=== PATIENT | female | born 1955 | race American Indian/Alaskan Native ===

== ENCOUNTER 2019-12-16 07:13 | Day surgery (SDC) | payer OTHER ==
[~2019-12-16 07:13] MED LIST: SODIUM CHLORIDE 0.9% 1000 ML 1,000 ML IV SCH
[2019-12-16] MEDS ORDERED: WATER FOR IRRIG STERILE 250 ML BOTTLE IR ONE (07:40)
--- NOTE | 2019-12-16 08:21 | Anesthesia Day of Surgery ---
Anesthesia Day of Surgery - Day of Surgery Patient Examined: Yes Patient H&P Reviewed: Yes Patient is NPO: Yes
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
[2019-12-16] MEDS ORDERED: LIDOCAINE MPF (2%) 20 MG/1 ML VIAL 5 ML ONE (10:05)
[2019-12-16] MEDS ORDERED: propofoL 200 MG/20 ML VIAL IV ONE ×3 (10:05→10:32)
[2019-12-16] MEDS ORDERED: ONDANSETRON 4 MG/2 ML INJ ONE (10:05)
--- NOTE | 2019-12-16 10:53 | Procedure Note ---
Date of procedure: 12/16/19 Pre-op diagnosis: Colon Polyp Screening/ H/O GI Bleeding Post-op diagnosis: other (GI Bleeding possiblyfrom Proximal colon Diverticuli/ Proximal Colon Lipoma (biopsied)/Ascending colon Polyp (removed by Cold Biopsy)/ Another Ascending Colon Poyp seen, but then could not be located or removed.) Procedure: Colonoscopy with cold Biopsy Anesthesia: MAC Surgeon: HILDA TAVAREZ Estimated blood loss: minimal Pathology: list Specimen disposition: to lab Condition: stable Disposition: same day (Encourage fiber intake and avoid aspirin and NSAID for 5 days; otherwise resume home medication. Use OTC Hemorrhoidal medication if needed. Follwo up in 1 to 2 weeks ([phone]). Repeat Colonoscopy in 1 year.)
--- NOTE | 2019-12-16 11:24 | Operative Report ---
PROCEDURE: Colonoscopy. INDICATIONS: This is a 64-year-old -[place] female who had a colonoscopy done as part of colon polyp screening. She also had complained of some GI bleeding. DESCRIPTION OF PROCEDURE: The procedure was done after getting informed consent with MAC anesthesia. Initial rectal exam was unremarkable. Instrument was passed through the rectum onto the cecum, which was identified by the ileocecal valve and the appendiceal orifice. Visualization was fair to good. In the cecum, there was a lipoma noted that was biopsied. In addition, there was an 8 mm polyp that was removed by cold biopsy. There was another polyp noted or seen in the ascending colon, but could not be located as it probably hid behind a fold and could not be removed as it could not be found. There were a few scattered diverticuli noted in the proximal colon, which may have caused the patient's bleeding but there is no source of bleeding at present. The transverse colon, descending colon, and sigmoid showed normal mucosa and the rectum appeared normal on the retroverted view. There was minimal bleeding associated with the biopsies, but no complications associated with the procedure. ASSESSMENT: Colon polyp screening, history of gastrointestinal bleeding, possibly secondary to proximal colon diverticular disease, but no bleeding at present. Right colon lipoma that was biopsied, right colon polyp about 7-8 mm, removed by cold biopsy. An additional polyp in the right colon was seen, but could not be subsequently located and could not be removed. PLAN: To have the patient avoid aspirin and aspirin-related products for the next few days. Encouraged the patient to take fiber supplements. Follow up in the office in 1-2 weeks' time and possibly to repeat the colonoscopy since a polyp was seen, but not removed in a year's time. Procedure was done in the GI lab with assistance of the GI lab team, which included ANA Oliver; Amadeo platt and with assistance of anesthesia. JOB# [id number] DEBORA/DARA
[2019-12-16 11:30] VITALS: BP 128/71
--- NOTE | 2019-12-16 12:26 | Post Anesthesia Evaluation ---
- Post Anesthesia Evaluation Patient Participated: Yes Airway Patent: Yes Stable Respiratory Function: Yes Nausea/Vomiting: No Temp > 96.8F: Yes Pain Manageable: Yes Adequeate Hydration: Yes Anesthesia Complications: No Block Receding Appropriately: Not Applicable Patient on Ventilator: No
== END 2019-12-16 11:53 | disposition home or self-care (01) ==
LOC: GIO 07:13
DX: K92.2 Gastrointestinal hemorrhage, unspecified (principal); D12.2 Benign neoplasm of ascending colon; K63.89 Other specified diseases of intestine; E11.9 Type 2 diabetes mellitus without complications; I10 Essential (primary) hypertension; E66.9 Obesity, unspecified; Z79.899 Other long term (current) drug therapy; Z80.0 Family history of malignant neoplasm of digestive organs; Z85.43 Personal history of malignant neoplasm of ovary; Z88.8 Allergy status to other drugs, medicaments and biological substances; Z98.890 Other specified postprocedural states; Z68.41 Body mass index [BMI] 40.0-44.9, adult
CPT/HCPCS: 45380; 82962; 88305; J2405; J2704; J7030

== ENCOUNTER 2020-04-04 09:02 | Outpatient (CLI) | payer BC ==
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
== END 2020-04-04 09:03 | disposition home or self-care (01) ==
LOC: MAMMO 09:02
PROVIDERS: ATTEND Family Medicine
DX: R92.8 Other abnormal and inconclusive findings on diagnostic imaging of breast (principal)